=== PATIENT | female | born 1945 | race Caucasian/White ===

== ENCOUNTER 2022-11-11 10:53 | Emergency (ER) | payer MEDICARE ==
[~2022-11-11] VITALS: Ht 154.9 cm; Wt 45.0 kg
--- NOTE | 2022-11-11 11:13 | NUR ---
SPOKE WITH MD HOPKINS REGARDING PTS S\S - HE WOULD LIKE AN MRI INSTEAD OF CT SCAN SINCE EPISODE WAS YESTERDAY AND PT IS CURRENTLY ASYMPTOMATIC.
[2022-11-11 11:35] LABS: BASOPHILS # (AUTO) 0.1 X10'3 (0-0.2); BASOPHILS % (AUTO) 1.2 % (0-1); EOSINOPHILS # (AUTO) 0.1 X10'3 (0-0.9); EOSINOPHILS % (AUTO) 2.1 % (0-6); HEMATOCRIT 44.3 % (35.0-45.0); HEMOGLOBIN 14.8 g/dl (12.0-16.0); LYMPHOCYTES # (AUTO) 1.4 X10'3 (1.1-4.8); MEAN CORPUSCULAR HEMOGLOBIN 32.1 PG (27.0-31.0); MEAN CORPUSCULAR HGB CONC 33.3 g/dL (33.0-36.5); MEAN CORPUSCULAR VOLUME 96.5 FL (78-98); MEAN PLATELET VOLUME 8.2 FL (7.4-10.4); MONOCYTES # (AUTO) 0.6 X10'3 (0-0.9); MONOCYTES % (AUTO) 9.9 % (2-12); NEUTROPHILS # (AUTO) 3.5 X10'3 (1.8-7.7); NEUTROPHILS % (AUTO) 61.8 % (42-75); PLATELET COUNT 204 X10'3 (140-440); WHITE BLOOD COUNT 5.7 X10'3 (4.5-11.0)
[2022-11-11 11:42] LABS: APTT 30 SECONDS (22-32)
[2022-11-11 11:45] LABS: ALANINE AMINOTRANSFERASE 63 U/L (12-78); ALBUMIN 3.7 G/DL (3.4-5.0); ALBUMIN/GLOBULIN RATIO 1.2 (1.1-1.5); ALKALINE PHOSPHATASE 96 IU/L (46-116); ANION GAP 5 (8-16); ASPARTATE AMINO TRANSFERASE 44 U/L (10-37); BILIRUBIN,TOTAL 0.8 MG/DL (0.1-1.0); BLOOD UREA NITROGEN 14 MG/DL (7-18); BUN/CREATININE RATIO 18.4 (10.0-20.0); CALCIUM 9.2 MG/DL (8.5-10.1); CHLORIDE 107 MMOL/L (99-107); CREATININE 0.76 MG/DL (0.40-0.90); GLUCOSE 111 MG/DL (70-104); POTASSIUM 3.7 MMOL/L (3.5-5.1); SODIUM 141 MMOL/L (135-145); TOTAL CARBON DIOXIDE 28.7 MMOL/L (24-32); TOTAL PROTEIN 6.7 G/DL (6.4-8.2); eGFR 74 ML/MIN
--- NOTE | 2022-11-11 12:06 | NUR ---
PT PREPARING TO GO FOR MRI. HAS NO COMPLAINTS AT THIS TIME.
--- NOTE | 2022-11-11 12:30 | NUR ---
pt taken to mri.
[2022-11-11 12:49] LABS: CHOL/HDL RATIO 2.2 (0.00-4.99); CHOLESTEROL 167 MG/DL (0-200); HDL CHOLESTEROL 76 MG/DL (35-60); LDL CHOLESTEROL 79 MG/DL (50-100); TRIGLYCERIDES 60 MG/DL (20-135)
--- NOTE | 2022-11-11 13:08 | NUR ---
PT HAS NO NEURO DEFICITS. DR HOPKINS AT BEDSIDE AND STATES PT WILL BE DISCHARGED.
[2022-11-11 13:14] VITALS: BP 156/84
== END 2022-11-11 13:16 | disposition home or self-care (01) ==
LOC: ER 10:53
DX: G45.9 Transient cerebral ischemic attack, unspecified (principal); Z88.2 Allergy status to sulfonamides
CPT/HCPCS: 36415; 70551; 71045; 80053; 80061; 84484; 85025; 85610; 85730; 93005; 99285

== ENCOUNTER 2022-12-17 15:43 | Emergency (ER) | payer MEDICARE ==
[~2022-12-17] VITALS: Ht 153.7 cm; Wt 43.6 kg
[2022-12-17 15:57] VITALS: BP 142/77
== END 2022-12-17 19:12 | disposition home or self-care (01) ==
LOC: ER 15:43
DX: S60.222A Contusion of left hand, initial encounter (principal); Z88.2 Allergy status to sulfonamides; X58.XXXA Exposure to other specified factors, initial encounter; Y93.89 Activity, other specified; Y92.89 Other specified places as the place of occurrence of the external cause; Y99.8 Other external cause status
CPT/HCPCS: 99281

== ENCOUNTER 2023-06-09 17:15 | Emergency (ER) | payer MEDICARE ==
[~2023-06-09] VITALS: Ht 152.4 cm; Wt 43.0 kg
[2023-06-09 17:20] VITALS: TEMP 98.3
[2023-06-09 18:46] VITALS: BP 137/80
[2023-06-09] MEDS ORDERED: predniSONE 20 mg tablet PO ONE (18:55)
[2023-06-09] MEDS ORDERED: amox tr/potassium clavulanate 875/125mg TAB PO ONE (18:55)
[2023-06-09] MEDS ORDERED: ipratropium/albuterol 3ml nebule NEB ONE (18:55)
[2023-06-09 19:15] VITALS: PULSE 74; RESP 16; O2SAT 96
[2023-06-09 19:21] VITALS: PULSE 71; RESP 16; O2SAT 100
[2023-06-09] MEDS ORDERED: PRED20TA PO (19:43)
[2023-06-09] MEDS ORDERED: ALBU8HFA INH (19:43)
[2023-06-09] MEDS ORDERED: AMOX-117 PO (19:43)
== END 2023-06-09 20:24 | disposition home or self-care (01) ==
LOC: ER 17:16
DX: J06.9 Acute upper respiratory infection, unspecified (principal); R05.9 Cough, unspecified; Z85.3 Personal history of malignant neoplasm of breast; Z88.2 Allergy status to sulfonamides; Z98.890 Other specified postprocedural states
CPT/HCPCS: 71045; 94640; 99283; J7512